=== PATIENT | female | born 1975 | race Caucasian/White ===

== ENCOUNTER 2017-09-08 23:10 | Inpatient (IN) | payer BC ==
[~2017-09-08] VITALS: Ht 167.6 cm; Wt 77.1 kg
[2017-09-08] MEDS ORDERED: PEPCID20 MG PO (23:20)
[2017-09-08] MEDS ORDERED: FLORASTOR250 MG PO (23:20)
[2017-09-08] MEDS ORDERED: OMEPRAZOLE20 M1 PO (23:20)
[2017-09-08] MEDS ORDERED: BENADRYL25 MG PO (23:20)
[2017-09-09 01:02] LABS: BASOPHILS 0.2 % (0-2); EOSINOPHILS 1.4 % (0-7); HEMATOCRIT 39.7 % (36.0-48.0); HEMOGLOBIN 13.1 g/dL (12-16); IMMATURE GRANULOCYTES 0.2 % (0-5); LYMPHOCYTES 32.1 % (15-50); MCH 30.5 pg (26.0-34.0); MCV 92.3 fL (80.0-100.0); MEAN PLATELET VOLUME 9.7 fL (7.4-10.4); MONOCYTES 4.3 % (2-11); NEUTROPHILS 61.8 % (40-80); PLATELET COUNT 211 10x3/uL (130-400); RDW 13.4 % (11.5-14.5); WBC 9.7 10x3/uL (4.8-10.8)
[2017-09-09 01:14] LABS: ALBUMIN 3.6 g/dL (3.4-5.0); ALKALINE PHOSPHATASE 73 U/L (46-116); ALT (SGPT) 18 U/L (10-68); BILIRUBIN - TOTAL 0.52 mg/dL (0.2-1.3); CALC OSMOLALITY 279 mosm/kg (275-300); CALCIUM 8.9 mg/dL (8.5-10.1); CARBON DIOXIDE 26.9 mmol/L (21.0-32.0); CHLORIDE - SERUM 106 mmol/L (98-107); CREATININE - SERUM 0.7 mg/dL (0.6-1.3); GLUCOSE 80 mg/dL (74-106); POTASSIUM - SERUM 3.2 mmol/L (3.5-5.1); PROTEIN - SERUM 7.2 g/dL (6.4-8.2); SODIUM 141 mmol/L (136-145); UREA NITROGEN 13 mg/dL (7-18); eGFR NON AFRICAN AMERICAN > 90 mL/min (90-120)
[2017-09-09 05:14] VITALS: BP 102/60
[2017-09-09 08:01] VITALS: BP 95/61
[2017-09-09 11:32] VITALS: BP 105/68
[2017-09-09 15:38] VITALS: BP 109/61
[2017-09-09 20:33] VITALS: BP 135/70
[2017-09-10 05:43] VITALS: BP 127/71
[2017-09-10 06:09] LABS: BASOPHILS 0.3 % (0-2); EOSINOPHILS 1.4 % (0-7); HEMOGLOBIN 12.2 g/dL (12-16); IMMATURE GRANULOCYTES 0.1 % (0-5); LYMPHOCYTES 29.1 % (15-50); MCH 30.4 pg (26.0-34.0); MCV 92.3 fL (80.0-100.0); MEAN PLATELET VOLUME 9.8 fL (7.4-10.4); MONOCYTES 4.2 % (2-11); NEUTROPHILS 64.9 % (40-80); PLATELET COUNT 183 10x3/uL (130-400); RBC 4.01 10x6/uL (4.00-5.40); WBC 7.7 10x3/uL (4.8-10.8)
[2017-09-10 06:34] LABS: ALBUMIN 3.1 g/dL (3.4-5.0); ALKALINE PHOSPHATASE 66 U/L (46-116); ALT (SGPT) 14 U/L (10-68); AMYLASE - SERUM 35 U/L (25-115); BILIRUBIN - TOTAL 0.27 mg/dL (0.2-1.3); CALC OSMOLALITY 285 mosm/kg (275-300); CALCIUM 8.6 mg/dL (8.5-10.1); CARBON DIOXIDE 25.4 mmol/L (21.0-32.0); CHLORIDE - SERUM 107 mmol/L (98-107); CREATININE - SERUM 0.7 mg/dL (0.6-1.3); GLUCOSE 73 mg/dL (74-106); LIPASE 53 U/L (73-393); PROTEIN - SERUM 6.4 g/dL (6.4-8.2); SODIUM 144 mmol/L (136-145); UREA NITROGEN 12 mg/dL (7-18); eGFR NON AFRICAN AMERICAN > 90 mL/min (90-120)
[2017-09-10 07:04] LABS: ERYTHROCYTE SEDIMENTATION RATE 23 mm/hr (0-20)
[2017-09-10 08:49] VITALS: BP 109/56
[2017-09-10 12:43] VITALS: Ht 167.6 cm; Wt 77.1 kg
[2017-09-10] MEDS ORDERED: FLAGYL500 MG PO (14:34)
[2017-09-10] MEDS ORDERED: LEVAQUIN500 MG PO (14:34)
== END 2017-09-10 17:00 | disposition home or self-care (01) | DRG 392 ==
LOC: D.ER 23:10 → D.M2 09-09 00:23
PROVIDERS: Family Medicine; Internal Medicine Gastroenterology
DX: K57.90 Diverticulosis of intestine, part unspecified, without perforation or abscess without bleeding (principal); K62.5 Hemorrhage of anus and rectum; F17.203 Nicotine dependence unspecified, with withdrawal; E87.6 Hypokalemia; E86.0 Dehydration

== ENCOUNTER → 2017-10-17 07:51 | Outpatient (CLI) | payer BC ==
[2017-09-10 12:43] VITALS: BMI 27.4
[~2017-10-17 07:51] MED LIST: BENADRYL25 MG PO; FLAGYL500 MG PO; FLORASTOR250 MG PO; LEVAQUIN500 MG PO; OMEPRAZOLE20 M1 PO; PEPCID20 MG PO
[2017-10-17 08:43] LABS: AMYLASE - SERUM 55 U/L (25-115); LIPASE 127 U/L (73-393)
== END | disposition home or self-care (01) ==
LOC: D.NM 07:51
PROVIDERS: Internal Medicine Gastroenterology
DX: R13.10 Dysphagia, unspecified (principal); R11.2 Nausea with vomiting, unspecified; R10.13 Epigastric pain

== ENCOUNTER 2018-03-27 16:00 | Inpatient (IN) | payer BC ==
[~2018-03-27] VITALS: Ht 167.6 cm; Wt 78.0 kg
[2018-03-27 16:42] LABS: BASOPHILS 0.3 % (0-2); EOSINOPHILS 1.3 % (0-7); HEMOGLOBIN 14.4 g/dL (12-16); IMMATURE GRANULOCYTES 0.3 % (0-5); LYMPHOCYTES 30.4 % (15-50); MCH 30.9 pg (26.0-34.0); MCHC 33.5 g/dL (31.0-37.0); MCV 92.3 fL (80.0-100.0); MEAN PLATELET VOLUME 9.7 fL (7.4-10.4); MONOCYTES 4.3 % (2-11); NEUTROPHILS 63.4 % (40-80); RBC 4.66 10x6/uL (4.00-5.40); RDW 12.9 % (11.5-14.5)
[2018-03-27 17:04] LABS: PLATELET COUNT 241 10x3/uL (130-400)
[2018-03-27 17:09] LABS: ALBUMIN 4.1 g/dL (3.4-5.0); ALKALINE PHOSPHATASE 87 U/L (46-116); ALT (SGPT) 22 U/L (10-68); AMYLASE - SERUM 59 U/L (25-115); BILIRUBIN - TOTAL 0.38 mg/dL (0.2-1.3); CALC OSMOLALITY 281 mosm/kg (275-300); CALCIUM 9.3 mg/dL (8.5-10.1); CARBON DIOXIDE 28.1 mmol/L (21.0-32.0); CHLORIDE - SERUM 103 mmol/L (98-107); CREATININE - SERUM 0.7 mg/dL (0.6-1.3); GLUCOSE 77 mg/dL (74-106); LIPASE 139 U/L (73-393); POTASSIUM - SERUM 3.5 mmol/L (3.5-5.1); PROTEIN - SERUM 7.7 g/dL (6.4-8.2); SODIUM 141 mmol/L (136-145); UREA NITROGEN 17 mg/dL (7-18); eGFR NON AFRICAN AMERICAN > 90 mL/min (90-120)
[2018-03-27 18:13] LABS: APPEARANCE CLEAR (CLEAR); COLOR YELLOW (YELLOW)
[2018-03-27 18:14] LABS: BILIRUBIN NEGATIVE (NEGATIVE); GLUCOSE NEGATIVE (NEGATIVE); KETONE NEGATIVE (NEGATIVE); NITRITE NEGATIVE (NEGATIVE); PROTEIN NEGATIVE (NEGATIVE); SPECIFIC GRAVITY 1.025 (1.005-1.020); UROBILINOGEN NORMAL (NORMAL)
[2018-03-27 18:16] LABS: BACTERIA MANY /hpf (NONE SEEN); EPITHELIAL CELLS 0-5 /hpf (0-5); RED CELLS - URINE OCC /hpf (0-5); WHITE CELLS - URINE 0-5 /hpf (0-5)
[2018-03-27 19:30] VITALS: BP 100/62
[2018-03-27 20:30] VITALS: BP 110/59
[2018-03-27 21:18] VITALS: BP 93/59
--- NOTE | 2018-03-28 02:40 | NUR ---
PT REQUESTED SOMETHING FOR NAUSEA
--- NOTE | 2018-03-28 03:00 | NUR ---
PT RESTING WITH EYES CLOSED NO DISTRESS NOTED
--- NOTE | 2018-03-28 05:00 | NUR ---
PT RESTING WITH EYES CLOSED, NO DISTRESS NOTED
[2018-03-28 05:08] LABS: BASOPHILS 0.4 % (0-2); EOSINOPHILS 3.5 % (0-7); HEMATOCRIT 36.3 % (36.0-48.0); IMMATURE GRANULOCYTES 0.1 % (0-5); LYMPHOCYTES 46.5 % (15-50); MCH 30.7 pg (26.0-34.0); MCHC 33.1 g/dL (31.0-37.0); MCV 92.8 fL (80.0-100.0); MEAN PLATELET VOLUME 9.6 fL (7.4-10.4); MONOCYTES 5.6 % (2-11); NEUTROPHILS 43.9 % (40-80); PLATELET COUNT 198 10x3/uL (130-400); RBC 3.91 10x6/uL (4.00-5.40)
[2018-03-28 05:14] LABS: WBC 8.2 10x3/uL (4.8-10.8)
--- NOTE | 2018-03-28 05:15 | NUR ---
FLAGYL COMPLETED AT 0510
[2018-03-28 05:34] LABS: ALKALINE PHOSPHATASE 60 U/L (46-116); ALT (SGPT) 19 U/L (10-68); BILIRUBIN - TOTAL 0.29 mg/dL (0.2-1.3); CALC OSMOLALITY 283 mosm/kg (275-300); CALCIUM 8.4 mg/dL (8.5-10.1); CARBON DIOXIDE 28.7 mmol/L (21.0-32.0); CHLORIDE - SERUM 107 mmol/L (98-107); CREATININE - SERUM 0.8 mg/dL (0.6-1.3); GLUCOSE 82 mg/dL (74-106); POTASSIUM - SERUM 3.8 mmol/L (3.5-5.1); PROTEIN - SERUM 6.3 g/dL (6.4-8.2); SODIUM 142 mmol/L (136-145); UREA NITROGEN 17 mg/dL (7-18); eGFR NON AFRICAN AMERICAN 82 mL/min (90-120)
[2018-03-28 05:43] LABS: ALBUMIN 2.9 g/dL (3.4-5.0)
--- NOTE | 2018-03-28 06:28 | NUR ---
PT REQUESTING MORE ZOFRAN AND TYLENOL, PT WAS INFORMED THAT IT WAS TO EARLY FOR THE ZOFRAN, BUT SHE COULD HAVE SOME TYLENOL OR IF SHE WANTED TO WAIT A LITTLE BIT I COULD BRING BOTH AT THE SAME TIME AND SHE ADVISED THAT SHE WANTED TO JUST WAIT
--- NOTE | 2018-03-28 10:39 | NUR ---
ROUNDING COMPLETED. PT STABLE WITH EQUAL NON LABORED RR. PT REQUESTS ASSISTANCE TO RESTROOM AND WOULD LIKE TO WALK AROUND. SPOUSE WALKING WITH PT. PT STEADY ON HER FEET WITH MINIMAL ASSITANCE. PT DENIES ANY FURTHER NEEDS OR COMPLAINTS AT PRESENT TIME.
[2018-03-28 10:40] VITALS: BP 98/52
--- NOTE | 2018-03-28 10:49 | MORECARE ---
CASE MANAGEMENT DISCHARGE SUMMARY PATIENT: JENIFER LONG UNIT: [id number] ADM DATE: 03/27/18 AGE: 42 : 71 SEX: F ROOM/BED: D.E11 AUTHOR: HUMERA DURHAM PHYSICIAN: REFERRING PHYSICIAN: JUNAID HARDY MD DATE OF SERVICE: 03/28/18 Discharge Plan Patient Name: JENIFER LONG Facility: [facility]:[place] : 1975 Planned Disposition: Anticipated Discharge Date: 03/30/18 Discharge Date: Expected LOS: 3 Initial Reviewer: [email or web address] Initial Review Date: 03/27/2018 Generated: 03/28/18 11:49 am Patient Name: JENIFER LONG Page [phone] at 1049 All edits/amendments must be made on the electronic document DICTATION DATE: 03/28/18 1049 HUMAN RESOURCES FILE CLERK: CARLY 03/28/18 1049 RPT#: [id number] DC DATE: STATUS: ADM IN [facility] [address] [place] [address] END OF REPORT
--- NOTE | 2018-03-28 10:58 | MORECARE ---
CASE MANAGEMENT DISCHARGE SUMMARY PATIENT: JENIFER POLLACK UNIT: [id number] ADM DATE: 03/27/18 AGE: 42 : 71 SEX: F ROOM/BED: D.E11 AUTHOR: HUMERA DURHAM PHYSICIAN: REFERRING PHYSICIAN: JUNAID HARDY MD DATE OF SERVICE: 03/28/18 Discharge Plan Patient Name: JENIFER POLLACK Facility: [facility]:[place] : 1975 Planned Disposition: Anticipated Discharge Date: 03/30/18 Discharge Date: Expected LOS: 3 Initial Reviewer: [email or web address] Initial Review Date: 03/27/2018 Generated: 03/28/18 11:57 am DCP- Discharge Planning Updated by [email or web address]: Marina Andujar on 03/28/18 9:[address] Patient Name: JENIFER POLLACK Admission Status: ER Accout number: [id number] Admission Date: 03-27-2018 : 1975 Admission Diagnosis: Attending: JUNAID HARDY Current LOS: 1 Anticipated DC Date: 03-30-2018 Planned Disposition: Primary Insurance: [employer] [facility] Discharge Planning Comments: CM met with patient and her spouse, Gabriele, to complete initial dc planning assessment. CM educated patient on the CM role and verbal consent given by patient to complete assessment. Patient lives at home with her . She reports she is independent in her ADL's and IADL's. At discharge patient plans to return home and feels this is a safe discharge. CM discussed availability of home health, rehab services, and medical equipment. Patient denied known discharge needs at this time. CM will continue to follow and will assist as needed with dc plans/needs. Color Making Supervisor: Marina Andujar DCPIA - Discharge Planning Initial Assessment Updated by [email or web address]: Marina Andujar on 03/28/18 10:50 am * Is the patient Alert and Oriented? Yes * PCP [facility] - No PCP * Pharmacy [facility] * Preadmission Environment Home with Family * ADLs Independent * Equipment None * List name and contact numbers for known caregivers / representatives who currently or will assist patient after discharge: Gabriele Pollack - spouse [phone] * Verbal permission to speak to the caregivers and representatives has been obtained from the patient. Yes * Community resources currently utilized None * Additional services required to return to the preadmission environment? No * Can the patient safely return to the preadmission environment? Yes * Has this patient been hospitalized within the prior 30 days at any hospital? No Last DP export: 03/28/18 9:49 a Patient Name: JENIFER POLLACK Page [phone] at 1058 All edits/amendments must be made on the electronic document DICTATION DATE: 03/28/181056 BARKEEP: CARLY 03/28/181056 RPT#: [id number] DC DATE: STATUS: ADM IN [facility] [address] [place] [address] END OF REPORT
[2018-03-28 12:30] VITALS: BP 93/50
--- NOTE | 2018-03-28 12:32 | NUR ---
PT C/O HEADACHE AND YEAST INFECTTION STARTING. WILL NOTIFIY ADMITTING PHYSICIAN
--- NOTE | 2018-03-28 13:24 | NUR ---
FLAGYL COMPLETED AT 1200.
--- NOTE | 2018-03-28 13:47 | NUR ---
CALLED ER TO RECEIVE REPORT FROM NURSE, WAS ADVISED BY ER CLERK CANTOR THAT NURSE IS TRANSPORTING PT TO FLOOR AND WILL CALL ME WHEN RETURNS
[2018-03-28 14:30] VITALS: BP 89/35; BMI 27.8
[2018-03-28 19:44] VITALS: BP 145/49
--- NOTE | 2018-03-28 20:10 | NUR ---
THE PATIENT WAS WATCHING TELEVISION AND TALKING TO HER WHEN STAFF ENTERED HER ROOM. BED IN LOW POSITION WITH SIDERAILS X2 AND CALL LIGHT WITHIN REACH. PATIENT EDUCATED ON USE OF A CALL LIGHT AND DEMONSTRATES UNDERSTANDING VIA TEACHBACK METHOD. THE PATIENT HAS NO QUESTIONS OR COCNERNS AT THIS TIME.
--- NOTE | 2018-03-29 03:48 | NUR ---
PATIENT APPEARS TO BE SLEEPING COMFORTABLY.
[2018-03-29 04:00] VITALS: BP 121/66
[2018-03-29 05:48] LABS: BASOPHILS 0.4 % (0-2); EOSINOPHILS 4.7 % (0-7); HEMATOCRIT 36.4 % (36.0-48.0); IMMATURE GRANULOCYTES 0.1 % (0-5); LYMPHOCYTES 29.8 % (15-50); MCH 30.4 pg (26.0-34.0); MCV 92.2 fL (80.0-100.0); MEAN PLATELET VOLUME 10.1 fL (7.4-10.4); MONOCYTES 5.9 % (2-11); NEUTROPHILS 59.1 % (40-80); PLATELET COUNT 189 10x3/uL (130-400); RBC 3.95 10x6/uL (4.00-5.40); RDW 12.6 % (11.5-14.5); WBC 8.5 10x3/uL (4.8-10.8)
[2018-03-29 06:14] LABS: CALC OSMOLALITY 276 mosm/kg (275-300); CALCIUM 8.9 mg/dL (8.5-10.1); CARBON DIOXIDE 26.2 mmol/L (21.0-32.0); CHLORIDE - SERUM 103 mmol/L (98-107); CREATININE - SERUM 0.8 mg/dL (0.6-1.3); GLUCOSE 75 mg/dL (74-106); POTASSIUM - SERUM 3.8 mmol/L (3.5-5.1); SODIUM 140 mmol/L (136-145); eGFR NON AFRICAN AMERICAN 82 mL/min (90-120)
[2018-03-29 06:19] LABS: UREA NITROGEN 10 mg/dL (7-18)
--- NOTE | 2018-03-29 07:49 | NUR ---
REPORT RECEIVED. PT SITTING UP IN BED WITH EYES OPEN, RR EVEN AND UNLABORED. AT BEDSIDE. NO S/S OF DISTRESS. BED IN LOW POSITION. CALL LIGHT IN REACH. WILL CTM.
[2018-03-29 07:54] VITALS: BP 117/65
--- NOTE | 2018-03-29 09:58 | NUR ---
PT BACK TO FLOOR FROM SMALL BOWEL SERIES, NO S/S OF DISTRESS. WILL CTM.
[2018-03-29 11:46] VITALS: BP 141/42
--- NOTE | 2018-03-29 14:18 | NUR ---
PT SITTING UP IN BED WITH EYES OPEN, RR EVEN AND UNLABORED. NO S/S OF DISTRESS. PT DOES NOT APPEAR TO HAVE EATEN ANY OF MEAL TRAY. PT STATES ORDERED CLONAZEPAM HAS BEEN EFFECTIVE IN MANAGEMENT OF PT FEELINGS OF ANXIETY. DENIES FURTHER NEEDS. AT BEDSIDE. CALL LIGHT IN REACH. WILL CTM.
[2018-03-29 15:46] VITALS: BP 121/72
--- NOTE | 2018-03-29 19:30 | NUR ---
PT RESTING IN BED. DRINK SPILT ON FLOOR, CLEANED UP AND CALLED EVS TO MOP AREA. PT IS AAO, SITTING IN BED. NO S/S OF DISTRESS. ZOFRAN DRIP INFUSING ORDERED. PT HAS FAMILY AT BEDSIDE. BEDLOW AND CALL LIGHT IN REACH. NAME AND DATE PLACED ON BOARD. WILL CPOC
[2018-03-29 21:00] VITALS: BP 123/66
--- NOTE | 2018-03-30 00:10 | NUR ---
PROCAL STARTED. PT RESTING IN BED. NO S/S OF DISTRESS. BEDLOW AND CALL LIGHT IN REACH. PT VERBALIZED UNDERSTANDING OF PROCAL. PRINTED INFO ON A HANDOUT. FAMILY IN ROOM. PT HAS NO S/S OF DISTRESS. WILL CPOC
[2018-03-30 06:29] LABS: BASOPHILS 0.5 % (0-2); EOSINOPHILS 7.5 % (0-7); HEMATOCRIT 32.9 % (36.0-48.0); HEMOGLOBIN 10.9 g/dL (12-16); IMMATURE GRANULOCYTES 0.2 % (0-5); LYMPHOCYTES 44.2 % (15-50); MCH 30.2 pg (26.0-34.0); MCHC 33.1 g/dL (31.0-37.0); MCV 91.1 fL (80.0-100.0); MEAN PLATELET VOLUME 10.1 fL (7.4-10.4); MONOCYTES 7.5 % (2-11); NEUTROPHILS 40.1 % (40-80); PLATELET COUNT 178 10x3/uL (130-400); RBC 3.61 10x6/uL (4.00-5.40); RDW 12.5 % (11.5-14.5)
[2018-03-30 06:34] LABS: WBC 5.6 10x3/uL (4.8-10.8)
[2018-03-30 06:50] VITALS: BP 122/68
[2018-03-30 07:22] LABS: CALC OSMOLALITY 284 mosm/kg (275-300); CALCIUM 8.7 mg/dL (8.5-10.1); CARBON DIOXIDE 27.2 mmol/L (21.0-32.0); CHLORIDE - SERUM 106 mmol/L (98-107); CREATININE - SERUM 0.7 mg/dL (0.6-1.3); GLUCOSE 81 mg/dL (74-106); POTASSIUM - SERUM 3.5 mmol/L (3.5-5.1); SODIUM 144 mmol/L (136-145); UREA NITROGEN 9 mg/dL (7-18); eGFR NON AFRICAN AMERICAN > 90 mL/min (90-120)
[2018-03-30 09:46] VITALS: BP 114/68
--- NOTE | 2018-03-30 10:50 | NUR ---
PT AM MEDS ADMINISTERED AT THIS TIME. PT DENIES NEEDS. WCTM.
[2018-03-30 12:22] VITALS: BP 104/63
[2018-03-30 13:22] VITALS: BMI 27.7
--- NOTE | 2018-03-30 15:00 | NUR ---
PT IV TO LEFT WRIST CAME OUT AND NEW IV TO RT WRIST STARTED BY TORRI WALTON. PROCAL INFUSING AT THIS TIME. TM.
--- NOTE | 2018-03-30 15:51 | MORECARE ---
CASE MANAGEMENT DISCHARGE SUMMARY PATIENT: JENIFER POLLACK UNIT: [id number] ADM DATE: 03/27/18 AGE: 42 : 71 SEX: F ROOM/BED: D.1209 AUTHOR: MARVADOC PHYSICIAN: REFERRING PHYSICIAN: JUNAID HARDY MD DATE OF SERVICE: 03/30/18 Discharge Plan Patient Name: JENIFER POLLACK Facility: [facility]:[place] : 1975 Planned Disposition: Anticipated Discharge Date: 03/30/18 Discharge Date: Expected LOS: 3 Initial Reviewer: [email or web address] Initial Review Date: 03/27/2018 Generated: 03/30/18 4:51 pm Comments DCP- Discharge Planning Updated by [email or web address]: Ene Paulino on 03/30/18 2:[address] CM was asked to verify patient's insurance coverage of Colonoscopy if done during this inpatient hospital stay. CM called and spoke with Clarita in the business office and verified that the inpatient hospital stay will be paid on a DRG payment plan. Patient has a $200.00 copay + $1,150.00 deductible = $1, 350.00 + 20% copay of remaining hospital bill with a max out of pocket of $2. 000.00 (this does not include the previously mentioned $1,350.00. CM explained this information to patient and her spouse who both verbalized understanding. DCP- Discharge Planning Updated by [email or web address]: Marina Andujar on 03/28/18 9:[address] Patient Name: JENIFER POLLACK Admission Status: ER Accout number: [id number] Admission Date: 03-27-2018 : 1975 Admission Diagnosis: Attending: JUNAID HARDY Current LOS: 1 Anticipated DC Date: 03-30-2018 Planned Disposition: Primary Insurance: [employer] [facility] Discharge Planning Comments: CM met with patient and her spouse, Gabriele, to complete initial dc planning assessment. CM educated patient on the CM role and verbal consent given by patient to complete assessment. Patient lives at home with her . She reports she is independent in her ADL's and IADL's. At discharge patient plans to return home and feels this is a safe discharge. CM discussed availability of home health, rehab services, and medical equipment. Patient denied known discharge needs at this time. CM will continue to follow and will assist as needed with dc plans/needs. Solar Sales Associate: Marina Andujar DCPIA - Discharge Planning Initial Assessment Updated by [email or web address]: Marina Andujar on 03/28/18 10:50 am * Is the patient Alert and Oriented? Yes * PCP [facility] - No PCP * Pharmacy [facility] * Preadmission Environment Home with Family * ADLs Independent * Equipment None * List name and contact numbers for known caregivers / representatives who currently or will assist patient after discharge: Gabriele Pollack - spouse [phone] * Verbal permission to speak to the caregivers and representatives has been obtained from the patient. Yes * Community resources currently utilized None * Additional services required to return to the preadmission environment? No * Can the patient safely return to the preadmission environment? Yes * Has this patient been hospitalized within the prior 30 days at any hospital? No Last DP export: 03/28/18 9:58 a Patient Name: JENIFER POLLACK Page [phone] at 1551 All edits/amendments must be made on the electronic document DICTATION DATE: 03/30/181549 TRANSPLANT NURSE PRACTITIONER: CARLY 03/30/181549 RPT#: [id number] DC DATE: STATUS: ADM IN [facility] [address] [place] [address] END OF REPORT
[2018-03-30 17:27] VITALS: BP 122/59
--- NOTE | 2018-03-30 21:26 | NUR ---
ASSISTED PT WITH SHOWER.
--- NOTE | 2018-03-30 22:00 | NUR ---
PT OUT OF SHOWER. IV FLUIDS HOOKED BACK UP. PROCAL TO RIGHT WRIST AAT 75, NS 75 ZOFRAN AND HOSPITAL ATTENDANT TO LEFT HAND. PT HAS FAMLIY INROOM. PT NIGHT MEDS GIVEN. PT DENIES ANY OTHER NEEDS. NO S/S OF DISTRESS. BEDLOW AND CALL LIGHT IN REACH. WILL CPOC
--- NOTE | 2018-03-31 03:25 | NUR ---
REST QUIETLY IN BED, CALL LIGHT IN REACH.
[2018-03-31 03:43] VITALS: BP 127/61
--- NOTE | 2018-03-31 03:58 | NUR ---
PT ASLEEP, RESP EVEN AND UNLABORED, NO S/S OF DISTRESS. BEDLOW AND CALL LIGHT IN REACH. WILL CPOC
[2018-03-31 06:24] LABS: BASOPHILS 0.3 % (0-2); EOSINOPHILS 6.7 % (0-7); HEMATOCRIT 34.4 % (36.0-48.0); HEMOGLOBIN 11.4 g/dL (12-16); IMMATURE GRANULOCYTES 0.2 % (0-5); LYMPHOCYTES 34.5 % (15-50); MCH 30.2 pg (26.0-34.0); MCHC 33.1 g/dL (31.0-37.0); MEAN PLATELET VOLUME 10.2 fL (7.4-10.4); MONOCYTES 6.9 % (2-11); NEUTROPHILS 51.4 % (40-80); PLATELET COUNT 187 10x3/uL (130-400); RBC 3.78 10x6/uL (4.00-5.40); RDW 12.6 % (11.5-14.5)
[2018-03-31 06:49] LABS: C-REACTIVE PROTEIN 0.7 mg/dL (0.0-0.9); CALC OSMOLALITY 282 mosm/kg (275-300); CALCIUM 8.8 mg/dL (8.5-10.1); CARBON DIOXIDE 26.1 mmol/L (21.0-32.0); CHLORIDE - SERUM 105 mmol/L (98-107); CREATININE - SERUM 0.7 mg/dL (0.6-1.3); GLUCOSE 92 mg/dL (74-106); POTASSIUM - SERUM 3.7 mmol/L (3.5-5.1); SODIUM 142 mmol/L (136-145); eGFR NON AFRICAN AMERICAN > 90 mL/min (90-120)
[2018-03-31 06:50] LABS: UREA NITROGEN 13 mg/dL (7-18)
[2018-03-31 08:00] VITALS: BP 113/64
--- NOTE | 2018-03-31 08:00 | NUR ---
AWAKE AND ALERT. ORIENTED X3. NO C/O AT THIS TIME. REPORTS FEELING A LITTLE BETTER TODAY. NO PAIN FOR NOW OR NAUSEA. LUNGS ARE CLEAR BILATERALLY, NO COUGH NOTED. SKIN IS INTACT WITHOUT REDNESS. IV TO RIGHT HAND IS PATENT WITHOUT REDNESS AT INSERTION SITE. DENIES NEEDS.
--- NOTE | 2018-03-31 09:00 | NUR ---
REFUSED TO EAT CL BREAKFAST. SAID TOLD HER NOT TO EAT IF IT MADE HER SICK.
[2018-03-31 09:46] LABS: ERYTHROCYTE SEDIMENTATION RATE 6 mm/hr (0-20)
--- NOTE | 2018-03-31 11:00 | NUR ---
REFUSED MAG CITRATE AT THIS TIME. DENIES NEEDS.
[2018-03-31 11:53] VITALS: BP 129/70
[2018-03-31 13:19] VITALS: Ht 167.6 cm; Wt 78.0 kg
--- NOTE | 2018-03-31 14:00 | NUR ---
IV TO RIGHT HAND RED AND TENDER. RESITED TO RIGHT FOREARM AFTER 2 ATTEMPTS IWTH 22 G. IV TO RIGHT HAND D/C WITH CATHETER INTACT.
[2018-03-31 16:00] VITALS: BP 125/62
--- NOTE | 2018-03-31 18:32 | NUR ---
REFUSED SUPPER TRAY. IS MUNCHING ON ICE INTERMITTANTLY. DENIES NEEDS. NO CHANGES NOTED.
--- NOTE | 2018-03-31 19:30 | NUR ---
THE PATIENT IS VISITING WITH FAMILY WHEN STAFF ENTERED HER ROOM. BED IN LOW POSITION WITH SIDERAILS X2 AND CALL LIGHT WITHIN REACH. PATIENT DEMONSTRATES USE OF A CALL LIGHT. THE PATIENT APPEARS COMFORTABLE WITH NO QUESTIONS OR CONCERNS AT THIS TIME.
[2018-03-31 20:00] VITALS: BP 121/74
[2018-04-01] VITALS: BP 121/69
--- NOTE | 2018-04-01 01:57 | NUR ---
NEW IV ACCESS STARTED IN LEFT WRIST. THE PATIENT HAS NO QUESTIONS OR CONCERNS AT THIS TIME.
[2018-04-01 04:00] VITALS: BP 156/45
[2018-04-01 06:37] LABS: BASOPHILS 0.5 % (0-2); EOSINOPHILS 5.5 % (0-7); HEMATOCRIT 36.3 % (36.0-48.0); HEMOGLOBIN 12.2 g/dL (12-16); IMMATURE GRANULOCYTES 0.2 % (0-5); MCH 30.2 pg (26.0-34.0); MCHC 33.6 g/dL (31.0-37.0); MCV 89.9 fL (80.0-100.0); MEAN PLATELET VOLUME 9.9 fL (7.4-10.4); MONOCYTES 7.1 % (2-11); NEUTROPHILS 45.7 % (40-80); PLATELET COUNT 172 10x3/uL (130-400); RBC 4.04 10x6/uL (4.00-5.40); RDW 12.5 % (11.5-14.5)
[2018-04-01 06:54] LABS: CALC OSMOLALITY 276 mosm/kg (275-300); CALCIUM 8.8 mg/dL (8.5-10.1); CARBON DIOXIDE 25.7 mmol/L (21.0-32.0); CHLORIDE - SERUM 105 mmol/L (98-107); CREATININE - SERUM 0.7 mg/dL (0.6-1.3); GLUCOSE 96 mg/dL (74-106); POTASSIUM - SERUM 3.8 mmol/L (3.5-5.1); SODIUM 139 mmol/L (136-145); UREA NITROGEN 10 mg/dL (7-18); eGFR NON AFRICAN AMERICAN > 90 mL/min (90-120)
--- NOTE | 2018-04-01 08:00 | NUR ---
ASSESSMENT COMPLETE. IV TO L WRIST PATENT. BLOOD DONOR RECRUITER SUPERVISOR MORPHINE 1-10-10 IN USE FOR PAIN CONTROL. ZOFRAN DRIP INFUSING. IV TO R FA PATENT. PROCALAMINE INFUSING AT 75 CC/HR VIA PUMP. FRIEND AT BEDSIDE.
--- NOTE | 2018-04-01 12:45 | NUR ---
URINE CULTURE COLLECTED AND SENT TO LAB.
[2018-04-01 16:13] VITALS: BP 120/68
--- NOTE | 2018-04-01 17:00 | NUR ---
DENIES ANY NEEDS AT THIS TIME. VISITING WITH FAMILY.
[2018-04-01 19:39] VITALS: BP 128/76
--- NOTE | 2018-04-01 23:37 | NUR ---
THE PATIENT WAS VISITING WITH FAMILY WHEN STAFF ENTERED HER ROOM. BED IN LOW POSITION WITH SIDERAILS X2 AND CALL LIGHT WITHIN REACH. PATIENT EDUCATED ON AMBIEN AND DEMONSTRATES UNDERSTANDING VIA TEACHBACK METHOD. THE PATIENT HAS NO QUESTIONS OR COCNERNS AT THIS TIME.
--- NOTE | 2018-04-02 02:53 | NUR ---
THE PATIENT APPEARS TO BE SLEEPING AND HAS FAMILY IN HER ROOM.
[2018-04-02 04:24] VITALS: BP 97/58
[2018-04-02 06:27] LABS: BASOPHILS 0.5 % (0-2); EOSINOPHILS 6.5 % (0-7); HEMATOCRIT 38.3 % (36.0-48.0); HEMOGLOBIN 12.9 g/dL (12-16); IMMATURE GRANULOCYTES 0.2 % (0-5); LYMPHOCYTES 42.3 % (15-50); MCH 30.8 pg (26.0-34.0); MCHC 33.7 g/dL (31.0-37.0); MCV 91.4 fL (80.0-100.0); MEAN PLATELET VOLUME 10.3 fL (7.4-10.4); MONOCYTES 7.3 % (2-11); NEUTROPHILS 43.2 % (40-80); PLATELET COUNT 197 10x3/uL (130-400); RBC 4.19 10x6/uL (4.00-5.40); RDW 12.8 % (11.5-14.5)
[2018-04-02 06:51] LABS: CALC OSMOLALITY 279 mosm/kg (275-300); CALCIUM 8.9 mg/dL (8.5-10.1); CHLORIDE - SERUM 105 mmol/L (98-107); CREATININE - SERUM 0.7 mg/dL (0.6-1.3); GLUCOSE 90 mg/dL (74-106); POTASSIUM - SERUM 3.9 mmol/L (3.5-5.1); SODIUM 141 mmol/L (136-145); UREA NITROGEN 11 mg/dL (7-18); eGFR NON AFRICAN AMERICAN > 90 mL/min (90-120)
--- NOTE | 2018-04-02 08:00 | NUR ---
ASSESSMENT COMPLETE. IV TO R FA WITH SWELLING NOTED. IV REMOVED. CATHETER TIP INTACT. DOESN'T WANT TO BE RESITED AT THIS TIME. STATES," I THINK I CAN MAKE IT WITHOUT THE PROCALAMINE." IV TO L WRIST PATENT. PRIMARY MILL ROLLER MORPHINE 1-10-10 IN USE FOR PAIN CONTROL. FRIEND AT BEDSIDE. DENIES ANY NEEDS AT THIS TIME.
[2018-04-02 08:57] VITALS: BP 96/37
--- NOTE | 2018-04-02 12:00 | NUR ---
NO CHANGES NOTED AT THIS TIME.
[2018-04-02 15:00] VITALS: BP 110/62
--- NOTE | 2018-04-02 18:00 | NUR ---
VISITING WITH FAMILY. DENIES ANY NEEDS AT THIS TIME.
[2018-04-02 19:45] VITALS: BP 101/62
--- NOTE | 2018-04-02 19:55 | NUR ---
PT RESTING IN BED. ALERT AND ORIENTED. NO SIGNS OF DISTRESS. BREATHING EVEN AND UNLABORED. PT STATES NO PROBLEMS AT THIS TIME. IV SITE LT WRIST DRESSING CLEAN DRY AND INTACT. NO SIGNS OF INFECTION. SKIN CLEAN DRY AND INTACT. BOWELS HYPERACTIVE. NO LOWER LEG SWELLING PRESENT. WILL CONTINUE PLAN OF CARE. CALL LIGHT IN REACH.
--- NOTE | 2018-04-02 20:30 | NUR ---
PT IV INFULTRATED. NEW IV SITED 22G LT HAND ATTEMPT X1. PT TOLERATED WELL. WILL CONTINUE IV FLUIDS.
[2018-04-02 23:55] VITALS: BP 102/53
[2018-04-03 03:55] VITALS: BP 103/66
[2018-04-03 06:51] LABS: BASOPHILS 0.5 % (0-2); EOSINOPHILS 4.8 % (0-7); HEMATOCRIT 34.9 % (36.0-48.0); HEMOGLOBIN 11.7 g/dL (12-16); IMMATURE GRANULOCYTES 0.2 % (0-5); LYMPHOCYTES 38.9 % (15-50); MCH 30.3 pg (26.0-34.0); MCHC 33.5 g/dL (31.0-37.0); MCV 90.4 fL (80.0-100.0); MEAN PLATELET VOLUME 10.2 fL (7.4-10.4); MONOCYTES 7.7 % (2-11); NEUTROPHILS 47.9 % (40-80); PLATELET COUNT 189 10x3/uL (130-400); RBC 3.86 10x6/uL (4.00-5.40); RDW 12.9 % (11.5-14.5); WBC 5.8 10x3/uL (4.8-10.8)
[2018-04-03 07:08] LABS: CALC OSMOLALITY 276 mosm/kg (275-300); CALCIUM 8.8 mg/dL (8.5-10.1); CARBON DIOXIDE 24.4 mmol/L (21.0-32.0); CHLORIDE - SERUM 105 mmol/L (98-107); CREATININE - SERUM 0.7 mg/dL (0.6-1.3); GLUCOSE 92 mg/dL (74-106); POTASSIUM - SERUM 3.5 mmol/L (3.5-5.1); SODIUM 140 mmol/L (136-145); eGFR NON AFRICAN AMERICAN > 90 mL/min (90-120)
[2018-04-03 07:09] LABS: UREA NITROGEN 8 mg/dL (7-18)
--- NOTE | 2018-04-03 07:10 | NUR ---
TO GI LAB.
[2018-04-03 07:11] LABS: INR 1.22 (0.85-1.17); PROTIME 14.8 SECONDS (11.6-15.0)
--- NOTE | 2018-04-03 09:20 | NUR ---
0915-RETURNS FROM GI LAB, DR ALMANZAR AT BEDSIDE WITH FAMILY. WILL MONITOR.
[2018-04-03 11:38] VITALS: BP 85/40
--- NOTE | 2018-04-03 15:06 | NUR ---
VERBAL AND WRITTEN DISCHARGE INSTRUCTIONS GIVEN TO PATIENT. SALINE LOCK REMOVED WITH CATH TIP INTACT. DISCHARGED HOME VIA WHEELCHAIR.
--- NOTE | 2018-04-04 08:38 | MORECARE ---
CASE MANAGEMENT DISCHARGE SUMMARY PATIENT: JENIFER POLLACK UNIT: [id number] ADM DATE: 03/27/18 AGE: 42 : 71 SEX: F ROOM/BED: D.1209 AUTHOR: MARVA,DOC PHYSICIAN: REFERRING PHYSICIAN: JUNAID HARDY MD DATE OF SERVICE: 04/04/18 Discharge Plan Patient Name: JENIFER POLLACK Facility: [facility]:[place] : 1975 Planned Disposition: Anticipated Discharge Date: 03/30/18 Discharge Date: 04/03/2018 Expected LOS: 3 Initial Reviewer: [email or web address] Initial Review Date: 03/27/2018 Generated: 04/04/18 9:38 am Comments DCP- Discharge Planning Updated by [email or web address]: Ene Paulino on 03/30/18 2:[address] CM was asked to verify patient's insurance coverage of Colonoscopy if done during this inpatient hospital stay. CM called and spoke with Clarita in the business office and verified that the inpatient hospital stay will be paid on a DRG payment plan. Patient has a $200.00 copay + $1,150.00 deductible = $1, 350.00 + 20% copay of remaining hospital bill with a max out of pocket of $2. 000.00 (this does not include the previously mentioned $1,350.00. CM explained this information to patient and her spouse who both verbalized understanding. DCP- Discharge Planning Updated by [email or web address]: Marina Andujar on 03/28/18 9:[address] Patient Name: JENIFER POLLACK Admission Status: Accout number: [id number] Admission Date: 03-27-2018 : 1975 Admission Diagnosis: Attending: JUNAID HARDY Current LOS: 1 Anticipated DC Date: 03-30-2018 Planned Disposition: Primary Insurance: [employer] [facility] Discharge Planning Comments: CM met with patient and her spouse, Gabriele, to complete initial dc planning assessment. CM educated patient on the CM role and verbal consent given by patient to complete assessment. Patient lives at home with her . She reports she is independent in her ADL's and IADL's. At discharge patient plans to return home and feels this is a safe discharge. CM discussed availability of home health, rehab services, and medical equipment. Patient denied known discharge needs at this time. CM will continue to follow and will assist as needed with dc plans/needs. Heel Slugger: Marina Andujar DCPIA - Discharge Planning Initial Assessment Updated by [email or web address]: Marina Andujar on 03/28/18 10:50 am * Is the patient Alert and Oriented? Yes * PCP [facility] - No PCP * Pharmacy [facility] * Preadmission Environment Home with Family * ADLs Independent * Equipment None * List name and contact numbers for known caregivers / representatives who currently or will assist patient after discharge: Gabriele Pollack - spouse [phone] * Verbal permission to speak to the caregivers and representatives has been obtained from the patient. Yes * Community resources currently utilized None * Additional services required to return to the preadmission environment? No * Can the patient safely return to the preadmission environment? Yes * Has this patient been hospitalized within the prior 30 days at any hospital? No Last DP export: 03/30/18 2:51 p Patient Name: JENIFER POLLACK Page 13942 at 0838 All edits/amendments must be made on the electronic document DICTATION DATE: 04/04/18836 CIVIL GEOTECHNICAL ENGINEER: CARLY 04/04/18836 RPT#: [id number] DC DATE:04/03/18 STATUS: DIS IN [facility] [address] [place] [address] END OF REPORT
--- NOTE | 2018-04-04 15:16 | DS ---
PATIENT:JENIFER LONG :[birth year] MEDICAL RECORD: [id number] DISCHARGE SUMMARY ADMISSION DATE: 03/27/18 DISCHARGE DATE: 04/03/18 DATE OF ADMISSION: 03/27/2018 DATE OF DISCHARGE: 04/03/2018 ADMITTING DIAGNOSES: Enteritis, tobacco abuse, and vaginal vicki. DISCHARGE DIAGNOSES: Abdominal pain, resolved; enteritis, resolved; and tobacco abuse. CONSULTING PHYSICIANS: Roxy Duggan MD, and Marylin Phan MD PROCEDURES: EGD colonoscopy. BRIEF HISTORY AND HOSPITAL COURSE: A 42-year-old white female with no past medical presents to the Emergency Room complaining of abdominal pain, nausea, vomiting. She has had 2 similar episodes to this in the past. She presents to the Emergency Room where CT is performed, which reveals some fluid-filled loops of distal small bowel with wall thickening and mild subjacent inflammatory changes without any transition point. She is subsequently seen, a GI consult is obtained. She was placed on clear liquids. Home medications are continued. She is placed on IV fluids, Lactated Ringer's of 125 cc an hour. LABORATORY DATA: Show a white count of 12, H&H is 14.4 and 43.0 respectively, platelets are 241. LFTs: Total bilirubin 0.38, AST 17, ALT 22, amylase and lipase are normal. Electrolytes are okay and within her normal range. She is subsequently admitted and started on IV antibiotics of Levaquin and Flagyl. IBD serologies were obtained. She was seen in consultation by GI. She underwent a prep and on the morning of the underwent EGD and colonoscopies with biopsies. No significant pathology was seen on endoscopy. She is going to be discharged to home with follow up with her primary care at a clinic in [place] and follow up with Dr. Duggan's and Dr. Phan for their instructions. She will need to follow up on biopsy results. DISCHARGE MEDICATIONS: Noted on discharge list. TRANSINT:[id number] Voice Confirmation ID: [id number] DOCUMENT ID: [id number] ACE MCDONNELL DO at 1516 CC: [facility] DMITRIY MCCLENDON [id number] DICTATION DATE: 04/03/18 1209 YOUTH CARE SPECIALIST: 04/03/18 2323 DIS IN 04/03/18 [facility] [address] [place] [address]
== END 2018-04-03 15:08 | disposition home or self-care (01) | DRG 392 ==
LOC: D.ER 16:00 → D.EDHOLD 19:56 → D.M3 19:56
PROVIDERS: Family Medicine; Internal Medicine Gastroenterology; ADMIT Internal Medicine Nephrology
PROC: 0DB68ZX Excision of Stomach, Via Natural or Artificial Opening Endoscopic, Diagnostic (ICD-10-PCS; 2018-04-03)
PROC: 0DB58ZX Excision of Esophagus, Via Natural or Artificial Opening Endoscopic, Diagnostic (ICD-10-PCS; 2018-04-03)
PROC: 0DBC8ZX Excision of Ileocecal Valve, Via Natural or Artificial Opening Endoscopic, Diagnostic (ICD-10-PCS; 2018-04-03)
PROC: 0DBB8ZX Excision of Ileum, Via Natural or Artificial Opening Endoscopic, Diagnostic (ICD-10-PCS; 2018-04-03)
PROC: 0DB98ZX Excision of Duodenum, Via Natural or Artificial Opening Endoscopic, Diagnostic (ICD-10-PCS; principal; 2018-04-03 06:41)
DX: K52.9 Noninfective gastroenteritis and colitis, unspecified (principal); F17.213 Nicotine dependence, cigarettes, with withdrawal; B37.3 Candidiasis of vulva and vagina; K20.9 Esophagitis, unspecified; K25.9 Gastric ulcer, unspecified as acute or chronic, without hemorrhage or perforation; K57.90 Diverticulosis of intestine, part unspecified, without perforation or abscess without bleeding; K64.8 Other hemorrhoids

== ENCOUNTER → 2018-09-05 13:25 | Outpatient (CLI) | payer BC ==
[2018-03-31 13:19] VITALS: BMI 27.7
[2018-09-05 13:59] LABS: BASOPHILS 0.1 % (0-2); EOSINOPHILS 0.6 % (0-7); HEMATOCRIT 41.1 % (36.0-48.0); HEMOGLOBIN 14.2 g/dL (12-16); IMMATURE GRANULOCYTES 0.1 % (0-5); LYMPHOCYTES 22.6 % (15-50); MCH 31.3 pg (26.0-34.0); MCHC 34.5 g/dL (31.0-37.0); MCV 90.5 fL (80.0-100.0); MEAN PLATELET VOLUME 9.4 fL (7.4-10.4); NEUTROPHILS 72.6 % (40-80); PLATELET COUNT 217 10x3/uL (130-400); RBC 4.54 10x6/uL (4.00-5.40); RDW 13.2 % (11.5-14.5)
[2018-09-05 14:12] LABS: ALBUMIN 4.1 g/dL (3.4-5.0); ALKALINE PHOSPHATASE 97 U/L (46-116); ALT (SGPT) 23 U/L (10-68); BILIRUBIN - TOTAL 0.37 mg/dL (0.2-1.3); CALC OSMOLALITY 278 mosm/kg (275-300); CALCIUM 9.6 mg/dL (8.5-10.1); CARBON DIOXIDE 26.6 mmol/L (21.0-32.0); CHLORIDE - SERUM 103 mmol/L (98-107); CREATININE - SERUM 0.8 mg/dL (0.6-1.3); GLUCOSE 76 mg/dL (74-106); POTASSIUM - SERUM 3.5 mmol/L (3.5-5.1); SODIUM 140 mmol/L (136-145); UREA NITROGEN 16 mg/dL (7-18); eGFR NON AFRICAN AMERICAN 82 mL/min (90-120)
[2018-09-05 14:52] LABS: ERYTHROCYTE SEDIMENTATION RATE 15 mm/hr (0-20)
== END | disposition home or self-care (01) ==
LOC: D.LAB 13:25
PROVIDERS: ATTEND Internal Medicine Gastroenterology
DX: K50.90 Crohn's disease, unspecified, without complications (principal); R10.9 Unspecified abdominal pain

== ENCOUNTER 2019-02-27 01:38 | Inpatient (IN) | payer OTHER ==
[2019-02-27] VITALS (7 sets, daily range): BP systolic 96–122; BP diastolic 48–76; Ht 172.7 cm; Wt 79.4 kg
[~2019-02-27] VITALS: Ht 172.7 cm; Wt 79.4 kg
[2019-02-27] MEDS ORDERED: FLUTICASONE PRO16 GM NASAL (01:44)
[2019-02-27] MEDS ORDERED: APRISO0.375 GM PO (01:44)
[2019-02-27] MEDS ORDERED: CLARITIN 10 MG10 MG PO (01:44)
[2019-02-27 02:15] LABS: BASOPHILS 0.1 % (0-2); EOSINOPHILS 1.5 % (0-7); HEMATOCRIT 44.3 % (36.0-48.0); IMMATURE GRANULOCYTES 0.2 % (0-5); LYMPHOCYTES 21.6 % (15-50); MCH 31.3 pg (26.0-34.0); MCHC 33.9 g/dL (31.0-37.0); MCV 92.3 fL (80.0-100.0); MEAN PLATELET VOLUME 9.3 fL (7.4-10.4); MONOCYTES 5.3 % (2-11); NEUTROPHILS 71.3 % (40-80); PLATELET COUNT 277 10x3/uL (130-400); RDW 12.9 % (11.5-14.5); WBC 13.7 10x3/uL (4.8-10.8)
[2019-02-27 02:25] LABS: CALC OSMOLALITY 286 mosm/kg (275-300); CALCIUM 10.3 mg/dL (8.5-10.1); CARBON DIOXIDE 31.8 mmol/L (21.0-32.0); CHLORIDE - SERUM 103 mmol/L (98-107); CREATININE - SERUM 0.8 mg/dL (0.6-1.3); GLUCOSE 109 mg/dL (74-106); POTASSIUM - SERUM 3.5 mmol/L (3.5-5.1); SODIUM 143 mmol/L (136-145); UREA NITROGEN 16 mg/dL (7-18); eGFR NON AFRICAN AMERICAN 82 mL/min (90-120)
[2019-02-27 02:27] LABS: ALBUMIN 4.4 g/dL (3.4-5.0); ALKALINE PHOSPHATASE 113 U/L (46-116); ALT (SGPT) 21 U/L (10-68); AMYLASE - SERUM 55 U/L (25-115); BILIRUBIN - TOTAL 0.36 mg/dL (0.2-1.3); LIPASE 106 U/L (73-393); PROTEIN - SERUM 8.5 g/dL (6.4-8.2); TROPONIN-I < 0.017 ng/mL (0.000-0.060)
--- NOTE | 2019-02-27 02:42 | NUR ---
PT LEFT ED VIA STRETCHER FOR CT.
--- NOTE | 2019-02-27 02:59 | NUR ---
PT RETURNED FROM CT VIA STRETCHER. PT ASSISTED TO BEDSIDE COMMODE.
--- NOTE | 2019-02-27 03:04 | NUR ---
URINE SPECIMEN SENT TO LAB.
[2019-02-27 03:31] LABS: APPEARANCE HAZY (CLEAR); BILIRUBIN NEGATIVE (NEGATIVE); COLOR DK YELLOW (YELLOW); GLUCOSE NEGATIVE (NEGATIVE); KETONE NEGATIVE (NEGATIVE); NITRITE NEGATIVE (NEGATIVE); PROTEIN TRACE mg/dL (NEGATIVE); UROBILINOGEN NORMAL (NORMAL)
[2019-02-27 03:35] LABS: BACTERIA MANY /hpf (NEGATIVE); CALCIUM OXALATE CRYSTALS OCC /hpf (NONE SEEN); EPITHELIAL CELLS 0-5 /hpf (0-5); MUCUS <1+ /lpf (NONE SEEN); RED CELLS - URINE 0-5 /hpf (0-5); WHITE CELLS - URINE 0-5 /hpf (NEGATIVE)
--- NOTE | 2019-02-27 03:40 | NUR ---
NG TUBE PLACED TO PT R NARE. PT TOLERATED WELL.
--- NOTE | 2019-02-27 04:30 | NUR ---
RECIEVED TO FLOOR ACCOMPANIED BY STAFF AND SPOUSE. A&O X 3, PT IS AGITATED AND INSISTS ON REMOVAL OF NGT IN RIGHT NARE ON LIS. INFORMED PT ON IMPORTANTANCE OF NGT AND SUGGESTED SHE KEEP IN UNTIL ONCALL ENVELOPE SEALER OPERATOR CAN BE NOTIFIED FOR SOMETHING TO HELP SETTLE HER NERVES. PT VERBALIZED UNDERSTANDING. ALSO REQUESTS MEDICATION FOR PAIN. REPORTS SHE HAS TAKEN DILAUDID AND MORPHINE BEFORE, BUT STATES HE'S ONLY BEEN AWARE OF HER TAKING DILAUDID WHILE HOSPITALIZED IN THE PAST. WILL PASS ON TO ENVELOPE SEALER OPERATOR, CONTINUE PLAN OF CARE.
--- NOTE | 2019-02-27 15:50 | NUR ---
PATIENT RESTING WITH PAIN TO RIGHT SIDE CONTROLED WITH DILAUDID. AFTER INCREASED TO 1MG Q2 HOURS. NG TO RIGHT NARE LOW INT SUCTION. FAMILY AT BEDSIDE. CL IN REACH
--- NOTE | 2019-02-27 18:17 | NUR ---
PATIENT REFUSED PROCAL INFUSION
[2019-02-28 01:00] VITALS: BP 100/60
[2019-02-28 04:47] VITALS: BP 100/57
--- NOTE | 2019-02-28 05:39 | NUR ---
PT REQUESTED DILAUDID THIS SHIFT AT THESE TIMES; 2006, 2222, 011, 041, EACH TIME REQUEST WAS GRANTED AND PAIN LEVEL WAS WEAKENED. AT 2222, REQUESTED KAYLIN BENNETT, GRANTED. INEFFECTIVE. AT 2344 REQUESTED CALLED AND REQUEST BENADRYL FOR FURTHER INSOMNIA, GRANTED AND INEFFECTIVE. NO INTERVENTIONS WERE EFFECTIVE IN QUEST FOR SLEEP. WILL NOTE ANY CHANGE. NG SUCTIONS CONTINUES TO HAVE COPIOUS OUTPUT THIS SHIFT.
[2019-02-28 06:33] LABS: BASOPHILS 0.1 % (0-2); EOSINOPHILS 0 % (0-7); HEMATOCRIT 37.6 % (36.0-48.0); HEMOGLOBIN 12.3 g/dL (12-16); IMMATURE GRANULOCYTES 0.2 % (0-5); LYMPHOCYTES 10.5 % (15-50); MCH 30.9 pg (26.0-34.0); MCHC 32.7 g/dL (31.0-37.0); MEAN PLATELET VOLUME 9.5 fL (7.4-10.4); MONOCYTES 3.1 % (2-11); NEUTROPHILS 86.1 % (40-80); PLATELET COUNT 234 10x3/uL (130-400); RBC 3.98 10x6/uL (4.00-5.40); RDW 12.9 % (11.5-14.5); WBC 17.1 10x3/uL (4.8-10.8)
[2019-02-28 06:57] LABS: ALBUMIN 3.3 g/dL (3.4-5.0); ALKALINE PHOSPHATASE 79 U/L (46-116); ALT (SGPT) 19 U/L (10-68); BILIRUBIN - TOTAL 0.16 mg/dL (0.2-1.3); CALC OSMOLALITY 295 mosm/kg (275-300); CALCIUM 8.5 mg/dL (8.5-10.1); CARBON DIOXIDE 29.3 mmol/L (21.0-32.0); CHLORIDE - SERUM 111 mmol/L (98-107); CREATININE - SERUM 0.8 mg/dL (0.6-1.3); GLUCOSE 145 mg/dL (74-106); MAGNESIUM - SERUM 2.2 mg/dL (1.8-2.4); PHOSPHOROUS 3.5 mg/dL (2.5-4.9); POTASSIUM - SERUM 3.5 mmol/L (3.5-5.1); PROTEIN - SERUM 6.8 g/dL (6.4-8.2); SODIUM 147 mmol/L (136-145); UREA NITROGEN 16 mg/dL (7-18); eGFR NON AFRICAN AMERICAN 82 mL/min (90-120)
[2019-02-28 06:59] LABS: MCV 94.5 fL (80.0-100.0)
--- NOTE | 2019-02-28 07:32 | NUR ---
PT IS RESTING IN BED WITH EYES OPEN. RESPIRATIONS ARE EVEN AND UNLABORED. PT STATES "I HAVE NOT SLEPT IN 2 WHOLE DAYS". PT FAMILY IS AT BEDSIDE. NG TUBE TO RIGHT NARE SET TO LIS AND DARK BROWN FLUID NOTED TO COLLECTION CANNISTER. PIV TORIGHT WRIST INFUSING WITHOUT DIFFICULTY. PT IS AAO X 4. PT REPORTS DISCOMFORT TO THROAT AND PAIN TO ABDOMEN. WILL ADDRESS. SEE EMAR. PT DENIES VOMITING/NAUSEA. ZOFRAN INFUSING WITHOUT DIFFICULTY. BED IS IN THE LOWEST POSITION. CALL LIGHT AND BEDSIDE TABLE ARE WITHIN REACH. SIDE RAILS X 2. PT DENIES FURTHER NEEDS. WILL CONT TO MONITOR.
[2019-02-28 09:02] VITALS: BP 106/49
--- NOTE | 2019-02-28 09:45 | NUR ---
PIV TO RIGHT WRIST IS "BURNING" PER PT. INFUSION STOPPED. ATTEMPT MADE TO RESITE IV AT PT REQUEST. UNSUCCESSFUL. VASCULAR ACCESS NURSE NOTIFIED FOR ASSISTANCE.
--- NOTE | 2019-02-28 09:46 | NUR ---
PIV TO RIGHT HAND REMOVED WITH CATHETER TIP INTACT. DRESSING APPLIED.
--- NOTE | 2019-02-28 11:00 | NUR ---
PT IS RESTING IN BED RESPIRATIONS ARE FAST AND LABORED. RICKIE RIVERA AT BEDSIDE, PT STAES THAT SHE FEELS TINGLING. ORDERS PLACED. WILL ADDRESS.
[2019-02-28 12:55] VITALS: BP 108/54
[2019-02-28 16:38] VITALS: BP 139/60
--- NOTE | 2019-02-28 18:59 | NUR ---
NG TUBE CLAMPED PER DR HARDY.
[2019-03-01] VITALS (7 sets, daily range): BP systolic 91–185; BP diastolic 46–67
--- NOTE | 2019-03-01 00:57 | NUR ---
PATIENT IN BED RESTING STATED STILL NOT SLEEPING. IV TO LEFT WRIST WITH 1/2 NS AT 50ML/HR AND ZOFRAN AT 4.7ML/HR. ALERT AND ORENTED ABLE TO VOICE NEEDS AND WANTS TO STAFF NG TUB IN PLACE AND PATEN. NPO WITH ICE CHIPS.
[2019-03-01 07:33] LABS: BASOPHILS 0 % (0-2); EOSINOPHILS 0 % (0-7); HEMATOCRIT 34.2 % (36.0-48.0); IMMATURE GRANULOCYTES 0.4 % (0-5); LYMPHOCYTES 8.2 % (15-50); MCH 30.3 pg (26.0-34.0); MCHC 32.2 g/dL (31.0-37.0); MCV 94.2 fL (80.0-100.0); MEAN PLATELET VOLUME 9.6 fL (7.4-10.4); MONOCYTES 2.5 % (2-11); NEUTROPHILS 88.9 % (40-80); PLATELET COUNT 233 10x3/uL (130-400); RBC 3.63 10x6/uL (4.00-5.40); RDW 13.2 % (11.5-14.5); WBC 14.1 10x3/uL (4.8-10.8)
[2019-03-01 07:47] LABS: CALC OSMOLALITY 292 mosm/kg (275-300); CALCIUM 8.6 mg/dL (8.5-10.1); CARBON DIOXIDE 32.4 mmol/L (21.0-32.0); CHLORIDE - SERUM 109 mmol/L (98-107); CREATININE - SERUM 0.8 mg/dL (0.6-1.3); GLUCOSE 127 mg/dL (74-106); MAGNESIUM - SERUM 2.4 mg/dL (1.8-2.4); PHOSPHOROUS 2.8 mg/dL (2.5-4.9); POTASSIUM - SERUM 3.7 mmol/L (3.5-5.1); SODIUM 145 mmol/L (136-145); UREA NITROGEN 19 mg/dL (7-18); eGFR NON AFRICAN AMERICAN 82 mL/min (90-120)
--- NOTE | 2019-03-01 11:44 | NUR ---
REQUESTED AND GIVNE 1MG DILAUDID SLOW IVP FOR C/O ABDOMINAL PAIN LEVEL 7. WILL MONITOR. WAS C/O UNABLE TO BREATHE O2 SAT AT 95%, COLOR WNL. WILL MONITOR.
--- NOTE | 2019-03-01 17:01 | NUR ---
RETURNED FROM PROCEDURE. A/O X3. NO C/O AT THIS TIME. FAMILY AT BEDSIDE.
--- NOTE | 2019-03-01 18:46 | NUR ---
RESTING QUIETLY IN BED. DENIES NAUSEA AT THIS TIME. FAMILY AT BEDSIDE. NG IS CLAMPED AT THIS TIME PER PATIENT REQUEST.
--- NOTE | 2019-03-01 23:10 | NUR ---
A&O X 4, REPORTS MILD PAIN, BUT REQUESTS MEDICATION FOR NAUSEA. FAMILY AT BEDSIDE, NO S/SX OF DISTRESS, WILL CONTINUE TO MONITOR.
[2019-03-02 00:15] VITALS: BP 112/66
[2019-03-02 05:54] VITALS: BP 124/62
[2019-03-02 06:08] LABS: BASOPHILS 0 % (0-2); EOSINOPHILS 0 % (0-7); HEMATOCRIT 33.4 % (36.0-48.0); HEMOGLOBIN 10.6 g/dL (12-16); IMMATURE GRANULOCYTES 0.7 % (0-5); MCH 30.2 pg (26.0-34.0); MCHC 31.7 g/dL (31.0-37.0); MCV 95.2 fL (80.0-100.0); MEAN PLATELET VOLUME 10.2 fL (7.4-10.4); MONOCYTES 5.1 % (2-11); NEUTROPHILS 82.2 % (40-80); PLATELET COUNT 198 10x3/uL (130-400); RBC 3.51 10x6/uL (4.00-5.40); RDW 13.2 % (11.5-14.5)
[2019-03-02 06:14] LABS: WBC 10.2 10x3/uL (4.8-10.8)
[2019-03-02 06:18] LABS: CALC OSMOLALITY 289 mosm/kg (275-300); CALCIUM 8.1 mg/dL (8.5-10.1); CHLORIDE - SERUM 109 mmol/L (98-107); CREATININE - SERUM 0.6 mg/dL (0.6-1.3); GLUCOSE 130 mg/dL (74-106); MAGNESIUM - SERUM 2.3 mg/dL (1.8-2.4); PHOSPHOROUS 2.8 mg/dL (2.5-4.9); POTASSIUM - SERUM 3.6 mmol/L (3.5-5.1); SODIUM 143 mmol/L (136-145); UREA NITROGEN 20 mg/dL (7-18); eGFR NON AFRICAN AMERICAN > 90 mL/min (90-120)
--- NOTE | 2019-03-02 06:33 | NUR ---
I have reviewed this patient and I concur with the Shift Assessment completed by the Licensed Practical Nurse today this shift.
[2019-03-02 09:47] VITALS: BP 102/63
--- NOTE | 2019-03-02 10:12 | NUR ---
PT RESTING IN BED NG TUBE IN PLACE TO RIGHT NARE THAT IS CLAMPED. PT DENIES PAIN AT THIS TIME. IV TO LEFT WRIST WITH NS @ 50ML/HR INFUSING VIA PUMP. SITE WITHOUT REDNESS OR EDEMA. DENIES NAUSEA AT THIS TIME. PT REPORTS WISHES FOR SOMEHTING TO EAT "EVEN IF IT IS JUST LIQUIDS, I FEEL LIKE IM READY." INFORMED PT THAT STAFF WOULD TALK WITH MD. PT DENIES FURTHER NEEDS AT THIS TIME. CL WITHIN REACH. ENCOURAGED TO CALL WITH NEEDS. CONTINUE POC
[2019-03-02 13:36] VITALS: BP 124/73
--- NOTE | 2019-03-02 15:54 | MORECARE ---
CASE MANAGEMENT DISCHARGE SUMMARY PATIENT: JENIFER LONG UNIT: [id number] ADM DATE: 02/27/19 AGE: 43 : 71 SEX: F ROOM/BED: D.2234 AUTHOR: HUMERA DURHAM PHYSICIAN: REFERRING PHYSICIAN: JUNAID HARDY MD DATE OF SERVICE: 03/02/19 Discharge Plan Patient Name: JENIFER LONG Facility: [facility]:[place] : 1975 Planned Disposition: Home Anticipated Discharge Date: 03/02/19 Discharge Date: Expected LOS: 3 Initial Reviewer: [email or web address] Initial Review Date: 03/02/2019 Generated: 03/02/19 4:54 pm Patient Name: JENIFER LONG Page [id number] at 1554 All edits/amendments must be made on the electronic document DICTATION DATE: 03/02/191553 COW TESTER: CARLY 03/02/191553 RPT#: [id number] DC DATE: STATUS: ADM IN [facility] [address] [place] [address] END OF REPORT
--- NOTE | 2019-03-02 16:02 | MORECARE ---
CASE MANAGEMENT DISCHARGE SUMMARY PATIENT: JENIFER LONG UNIT: [id number] ADM DATE: 02/27/19 AGE: 43 : 71 SEX: F ROOM/BED: D.2234 AUTHOR: MARVA,DOC PHYSICIAN: REFERRING PHYSICIAN: JUNAID HARDY MD DATE OF SERVICE: 03/02/19 Discharge Plan Patient Name: JENIFER LONG Facility: [facility]:[place] : 1975 Planned Disposition: Home Anticipated Discharge Date: 03/02/19 Discharge Date: Expected LOS: 3 Initial Reviewer: [email or web address] Initial Review Date: 03/02/2019 Generated: 03/02/19 5:02 pm Comments DCP- Discharge Planning Updated by [email or web address]: Rebecca Nelson on 03/02/19 2:[address] Patient Name: JENIFER LONG Admission Status: ER Accout number: [id number] Admission Date: 02-27-2019 : 1975 Admission Diagnosis: Attending: JUNAID HARDY Current LOS: 3 Anticipated DC Date: 03-02-2019 Planned Disposition: Home Primary Insurance: [employer] POS Discharge Planning Comments: CM met with patient to complete initial dc planning assessment. CM educated patient on the CM role and verbal consent given by patient to complete assessment. Patient lives at home with spouse. At discharge patient plans to return and feels this is a safe discharge. CM discussed availability of home health, rehab services, and medical equipment. Patient denied known discharge needs at this time. CM will continue to follow and will assist as needed with dc plans/needs. Deputy Sheriff Building Guard: Rebecca Nelson DCPIA - Discharge Planning Initial Assessment Updated by [email or web address]: Rebecca Nelson on 03/02/19 3:58 pm * Is the patient Alert and Oriented? Yes * How many steps to enter\exit or inside your home? 0/0 * PCP [facility] (Anjana Velez) * Pharmacy [facility] * Preadmission Environment Home with Family * ADLs Independent * Equipment None * List name and contact numbers for known caregivers / representatives who currently or will assist patient after discharge: [facility] - [phone] * Verbal permission to speak to the caregivers and representatives has been obtained from the patient. Yes * Community resources currently utilized None * Additional services required to return to the preadmission environment? No * Can the patient safely return to the preadmission environment? Yes * Has this patient been hospitalized within the prior 30 days at any hospital? No Last DP export: 03/02/19 2:54 Patient Name: JENIFER LONG Page [id number] at 1602 All edits/amendments must be made on the electronic document DICTATION DATE: 03/02/19 160 ANIMAL SURGEON: CARLY 03/02/19 160 RPT#: [id number] DC DATE: STATUS: ADM IN [facility] [address] [place] [address] END OF REPORT
[2019-03-02 17:54] VITALS: BP 106/63
--- NOTE | 2019-03-02 20:00 | NUR ---
UP AMBULATING IN HALLWAY.ALERT,ORIENTED. IV TO LEFT FOREARM INTACT WITHOUT REDENSS OR EDEMA NOTED. NO COMPLAITNS VOICED.
[2019-03-02 20:46] VITALS: BP 108/56
[2019-03-03 00:19] VITALS: BP 101/69
--- NOTE | 2019-03-03 03:19 | NUR ---
I have reviewed this patient and I concur with the Shift Assessment completed by the Licensed Practical Nurse today this shift.
--- NOTE | 2019-03-03 03:19 | NUR ---
I have reviewed this patient and I concur with the Shift Assessment completed by the Licensed Practical Nurse today this shift.
[2019-03-03 04:54] VITALS: BP 100/54
[2019-03-03 05:49] LABS: BASOPHILS 0 % (0-2); EOSINOPHILS 0 % (0-7); HEMATOCRIT 32.2 % (36.0-48.0); HEMOGLOBIN 10.5 g/dL (12-16); IMMATURE GRANULOCYTES 0.9 % (0-5); MCH 30.3 pg (26.0-34.0); MCHC 32.6 g/dL (31.0-37.0); MEAN PLATELET VOLUME 10.7 fL (7.4-10.4); MONOCYTES 3.8 % (2-11); NEUTROPHILS 77.3 % (40-80); PLATELET COUNT 160 10x3/uL (130-400); RBC 3.47 10x6/uL (4.00-5.40); WBC 7.9 10x3/uL (4.8-10.8)
[2019-03-03 06:05] LABS: MCV 92.8 fL (80.0-100.0)
[2019-03-03 06:10] LABS: CALC OSMOLALITY 285 mosm/kg (275-300); CALCIUM 7.9 mg/dL (8.5-10.1); CARBON DIOXIDE 29.1 mmol/L (21.0-32.0); CHLORIDE - SERUM 109 mmol/L (98-107); CREATININE - SERUM 0.5 mg/dL (0.6-1.3); GLUCOSE 131 mg/dL (74-106); MAGNESIUM - SERUM 2.1 mg/dL (1.8-2.4); PHOSPHOROUS 2.9 mg/dL (2.5-4.9); POTASSIUM - SERUM 3.4 mmol/L (3.5-5.1); SODIUM 142 mmol/L (136-145); UREA NITROGEN 16 mg/dL (7-18); eGFR NON AFRICAN AMERICAN > 90 mL/min (90-120)
--- NOTE | 2019-03-03 07:53 | NUR ---
RESTING IN BED, EYES CLOSED, IV INFUSING, CONT TO MONITOR FOR BOWEL SOUNDS AND MOVEMENTS
[2019-03-03 08:21] VITALS: BP 133/75
--- NOTE | 2019-03-03 12:18 | NUR ---
AFTER TRYING REGULAR FOOD THIS AM, PT HAS C/O NAUSEA, RESTING IN BED, MEDICATED FOR PAIN AND NAUSEA THIS SHIFT, CONT TO MONITOR
[2019-03-03 12:47] VITALS: BP 111/60
--- NOTE | 2019-03-03 15:48 | NUR ---
PT CONT TO REFUSE PROCAL, STATES THAT SHE WAS ABLE TO EAT MASHED POTATOS FOR LUNCH AND FEELS BETTER
[2019-03-03 17:32] VITALS: BP 98/59
[2019-03-03 20:22] VITALS: BP 115/68
--- NOTE | 2019-03-03 20:54 | NUR ---
LYING QUIELTY WITH NO DISTRESS NOTED. RESP EVEN AND UNALBORED.UP AD CHASE IN ROOM. CL IN REACH.FAMILY AT BEDSIDE.
--- NOTE | 2019-03-03 23:38 | NUR ---
I have reviewed this patient and I concur with the Shift Assessment completed by the Licensed Practical Nurse today this shift.
[2019-03-04 04:39] VITALS: BP 130/78
[2019-03-04 06:55] LABS: BASOPHILS 0 % (0-2); EOSINOPHILS 0 % (0-7); HEMATOCRIT 37.4 % (36.0-48.0); HEMOGLOBIN 12.2 g/dL (12-16); IMMATURE GRANULOCYTES 1.1 % (0-5); LYMPHOCYTES 14.3 % (15-50); MCH 29.9 pg (26.0-34.0); MCHC 32.6 g/dL (31.0-37.0); MCV 91.7 fL (80.0-100.0); MEAN PLATELET VOLUME 10.1 fL (7.4-10.4); MONOCYTES 2.9 % (2-11); NEUTROPHILS 81.7 % (40-80); RBC 4.08 10x6/uL (4.00-5.40); RDW 12.8 % (11.5-14.5)
[2019-03-04 07:12] LABS: PLATELET COUNT 212 10x3/uL (130-400); WBC 11.3 10x3/uL (4.8-10.8)
[2019-03-04 07:39] LABS: CALC OSMOLALITY 283 mosm/kg (275-300); CALCIUM 7.8 mg/dL (8.5-10.1); CARBON DIOXIDE 25.7 mmol/L (21.0-32.0); CHLORIDE - SERUM 108 mmol/L (98-107); CREATININE - SERUM 0.6 mg/dL (0.6-1.3); GLUCOSE 150 mg/dL (74-106); MAGNESIUM - SERUM 2.1 mg/dL (1.8-2.4); PHOSPHOROUS 2.5 mg/dL (2.5-4.9); POTASSIUM - SERUM 3.9 mmol/L (3.5-5.1); SODIUM 140 mmol/L (136-145); UREA NITROGEN 17 mg/dL (7-18); eGFR NON AFRICAN AMERICAN > 90 mL/min (90-120)
--- NOTE | 2019-03-04 08:06 | NUR ---
RESTING IN BED, FAMILY IN ROOM, ANXIOUS TO GO HOME TODAY, NO DISTRESS NOTED, CONT TO MONITOR INTAKE PAIN AND NAUSEA
[2019-03-04 08:49] VITALS: BP 159/67
[2019-03-04 13:43] VITALS: BP 144/63
[2019-03-04] MEDS ORDERED: PHENERGAN25 M1 PO (15:57)
[2019-03-04] MEDS ORDERED: AMBIEN5 MG PO (15:59)
[2019-03-04] MEDS ORDERED: LEVAQUIN750 MG PO (16:01)
[2019-03-04] MEDS ORDERED: FLAGYL500 MG PO (16:03)
--- NOTE | 2019-03-04 16:03 | NUR ---
OFFERED PT TOBACCO QUITLINE REFERRAL-DECLINED.
[2019-03-04] MEDS ORDERED: PREDNISONE10 MG PO ×2 (16:05→16:54)
[2019-03-04 16:16] VITALS: BP 113/59
--- NOTE | 2019-03-04 18:18 | NUR ---
1645 REVIEWED DC ORDERS WITH PT AND FAMILY, REMOVED IV, TIP INTACT, WALKED SELF FROM UNIT
--- NOTE | 2019-03-06 11:29 | MORECARE ---
CASE MANAGEMENT DISCHARGE SUMMARY PATIENT: JENIFER LONG UNIT: [id number] ADM DATE: 02/27/19 AGE: 43 : 71 SEX: F ROOM/BED: D.2234 AUTHOR: MARVA,DOC PHYSICIAN: REFERRING PHYSICIAN: JUNAID HARDY MD DATE OF SERVICE: 03/06/19 Discharge Plan Patient Name: JENIFER LONG Facility: [facility]:[place] : 1975 Planned Disposition: Home Anticipated Discharge Date: 03/02/19 Discharge Date: 03/04/2019 Expected LOS: 3 Initial Reviewer: [email or web address] Initial Review Date: 03/02/2019 Generated: 03/06/19 12:29 pm Comments DCP- Discharge Planning Updated by [email or web address]: Rebecca Nelson on 03/02/19 2:[address] Patient Name: JENIFER LONG Admission Status: ER Accout number: [id number] Admission Date: 02-27-2019 : 1975 Admission Diagnosis: Attending: JUNAID HARDY Current LOS: 3 Anticipated DC Date: 03-02-2019 Planned Disposition: Home Primary [facility] [place] [facility] Discharge Planning Comments: CM met with patient to complete initial dc planning assessment. CM educated patient on the CM role and verbal consent given by patient to complete assessment. Patient lives at home with spouse. At discharge patient plans to return and feels this is a safe discharge. CM discussed availability of home health, rehab services, and medical equipment. Patient denied known discharge needs at this time. CM will continue to follow and will assist as needed with dc plans/needs. Label Drier: Rebecca Nelson DCPIA - Discharge Planning Initial Assessment Updated by [email or web address]: Rebecca Nelson on 03/02/19 3:58 pm * Is the patient Alert and Oriented? Yes * How many steps to enter\exit or inside your home? 0/0 * PCP [facility] (Anjana Velez) * Pharmacy [facility] * Preadmission Environment Home with Family * ADLs Independent * Equipment None * List name and contact numbers for known caregivers / representatives who currently or will assist patient after discharge: [facility] - [phone] * Verbal permission to speak to the caregivers and representatives has been obtained from the patient. Yes * Community resources currently utilized None * Additional services required to return to the preadmission environment? No * Can the patient safely return to the preadmission environment? Yes * Has this patient been hospitalized within the prior 30 days at any hospital? No Last DP export: 03/02/19 3:02 Patient Name: JENIFER LONG Page [phone] at 1129 All edits/amendments must be made on the electronic document DICTATION DATE: 03/06/191128 WATER USE INSPECTOR: CARLY 03/06/191128 RPT#: [id number] DC DATE:03/04/19 STATUS: DIS IN [facility] [address] [place] [address] END OF REPORT
== END 2019-03-04 17:00 | disposition home or self-care (01) | DRG 386 ==
LOC: D.ER 01:38 → D.MS 03:26
PROVIDERS: Family Medicine; Internal Medicine Gastroenterology; ADMIT Internal Medicine Nephrology; ATTEND Internal Medicine Nephrology
PROC: 0DB68ZX Excision of Stomach, Via Natural or Artificial Opening Endoscopic, Diagnostic (ICD-10-PCS; principal; 2019-03-01 16:00)
DX: K50.912 Crohn's disease, unspecified, with intestinal obstruction (principal); N39.0 Urinary tract infection, site not specified; F17.203 Nicotine dependence unspecified, with withdrawal; T82.838A Hemorrhage due to vascular prosthetic devices, implants and grafts, initial encounter; K21.0 Gastro-esophageal reflux disease with esophagitis

== ENCOUNTER → 2019-05-15 10:27 | Outpatient (CLI) | payer OTHER ==
[2019-02-27 21:25] VITALS: BMI 26.6
[~2019-05-15 10:27] MED LIST changes: +AMBIEN5 MG PO; +APRISO0.375 GM PO; +CLARITIN 10 MG10 MG PO; +FLUTICASONE PRO16 GM NASAL; +LEVAQUIN750 MG PO; +PHENERGAN25 M1 PO; +PREDNISONE10 MG PO
[2019-05-15 11:12] LABS: BASOPHILS 0.2 % (0-2); EOSINOPHILS 0.7 % (0-7); HEMATOCRIT 39.5 % (36.0-48.0); HEMOGLOBIN 13.3 g/dL (12-16); IMMATURE GRANULOCYTES 0.4 % (0-5); MCH 30.8 pg (26.0-34.0); MCHC 33.7 g/dL (31.0-37.0); MCV 91.4 fL (80.0-100.0); MEAN PLATELET VOLUME 9.2 fL (7.4-10.4); MONOCYTES 2.8 % (2-11); NEUTROPHILS 75.9 % (40-80); RBC 4.32 10x6/uL (4.00-5.40); RDW 13.4 % (11.5-14.5); WBC 16.1 10x3/uL (4.8-10.8)
[2019-05-15 11:15] LABS: PLATELET COUNT 287 10x3/uL (130-400)
[2019-05-15 11:26] LABS: ALKALINE PHOSPHATASE 120 U/L (30-120); ALT (SGPT) 25 U/L (10-68); C-REACTIVE PROTEIN 2.4 mg/dL (0.0-0.9); CALC OSMOLALITY 274 mosm/kg (275-300); CALCIUM 9.3 mg/dL (8.5-10.1); CARBON DIOXIDE 25.4 mmol/L (21.0-32.0); CHLORIDE - SERUM 103 mmol/L (98-107); CREATININE - SERUM 0.7 mg/dL (0.6-1.3); POTASSIUM - SERUM 3.6 mmol/L (3.5-5.1); SODIUM 138 mmol/L (136-145); UREA NITROGEN 13 mg/dL (7-18); eGFR NON AFRICAN AMERICAN > 90 mL/min (90-120)
[2019-05-15 11:27] LABS: GLUCOSE 80 mg/dL (74-106)
[2019-05-15 12:41] LABS: ERYTHROCYTE SEDIMENTATION RATE 10 mm/hr (0-20)
[2019-05-16 10:10] LABS: ANA REFLEX - DIRECT Negative (Negative)
== END | disposition home or self-care (01) ==
LOC: D.RAD 10:27
PROVIDERS: ATTEND Internal Medicine Gastroenterology
DX: R11.2 Nausea with vomiting, unspecified (principal); R10.11 Right upper quadrant pain; R19.7 Diarrhea, unspecified

== ENCOUNTER → 2019-05-17 10:56 | Outpatient (CLI) | payer OTHER ==
[2019-02-27 21:25] VITALS: BMI 26.6
== END | disposition home or self-care (01) ==
LOC: D.LAB 05-16 11:15 → D.CT 05-16 11:30 → D.LAB 10:56
PROVIDERS: ATTEND Internal Medicine Gastroenterology
DX: K50.10 Crohn's disease of large intestine without complications (principal); D72.829 Elevated white blood cell count, unspecified; R11.2 Nausea with vomiting, unspecified; R10.11 Right upper quadrant pain; R19.7 Diarrhea, unspecified

== ENCOUNTER 2020-05-19 17:31 | Emergency (ER) | payer OTHER ==
[~2020-05-19] VITALS: Ht 172.7 cm; Wt 79.5 kg
[2020-05-19 17:42] VITALS: Ht 172.7 cm; Wt 79.5 kg
[2020-05-19] MEDS ORDERED: [UNRECOGNIZED DRUG - OTHER] (17:45)
[2020-05-19 18:23] LABS: BASOPHILS 0.2 % (0-2); EOSINOPHILS 0.5 % (0-7); HEMATOCRIT 43.6 % (36.0-48.0); HEMOGLOBIN 14.7 g/dL (12-16); IMMATURE GRANULOCYTES 0.1 % (0-5); LYMPHOCYTE ABS# 3.56 10x3/uL (1.18-3.74); LYMPHOCYTES 26.5 % (15-50); MCH 31.3 pg (26.0-34.0); MCHC 33.7 g/dL (31.0-37.0); MCV 92.8 fL (80.0-100.0); MEAN PLATELET VOLUME 9.5 fL (7.4-10.4); MONOCYTES 4.5 % (2-11); NEUTROPHIL ABS# 9.17 10x3/uL (1.56-6.13); NEUTROPHILS 68.2 % (40-80); WBC 13.5 10x3/uL (4.8-10.8)
[2020-05-19 18:36] LABS: CALC OSMOLALITY 284 mosm/kg (275-300); CALCIUM 9.7 mg/dL (8.5-10.1); CHLORIDE - SERUM 105 mmol/L (98-107); CREATININE - SERUM 0.8 mg/dL (0.6-1.3); GLUCOSE 87 mg/dL (74-106); PLATELET COUNT 221 10x3/uL (130-400); POTASSIUM - SERUM 3.7 mmol/L (3.5-5.1); SODIUM 143 mmol/L (136-145); UREA NITROGEN 14 mg/dL (7-18); eGFR NON AFRICAN AMERICAN 82 mL/min (90-120)
[2020-05-19 18:41] LABS: ALBUMIN 4.1 g/dL (3.4-5.0); ALKALINE PHOSPHATASE 93 U/L (30-120); ALT (SGPT) 21 U/L (10-68); AMYLASE - SERUM 46 U/L (25-115); BILIRUBIN - TOTAL 0.35 mg/dL (0.2-1.3); LIPASE 63 U/L (73-393); PROTEIN - SERUM 7.4 g/dL (6.4-8.2)
[2020-05-19] MEDS ORDERED: PHENERGAN25 M1 PO (21:02)
[2020-05-19 21:06] LABS: BILIRUBIN NEGATIVE (NEGATIVE); KETONE NEGATIVE (NEGATIVE); NITRITE NEGATIVE (NEGATIVE); UROBILINOGEN NORMAL mg/dL (< 2)
[2020-05-19 22:07] VITALS: BP 98/54
== END 2020-05-19 22:08 | disposition home or self-care (01) ==
LOC: D.ER 17:31
PROVIDERS: Family Medicine
DX: A08.4 Viral intestinal infection, unspecified (principal); R10.9 Unspecified abdominal pain